=== PATIENT | female | born 1985 | race Caucasian/White ===

== ENCOUNTER 2016-09-15 20:57 | Emergency (ER) | payer OTHER ==
[2016-09-15 22:13] LABS: BILIRUBIN NEGATIVE (NEGATIVE); BLOOD 3+ Ery/uL (NEGATIVE); CLARITY SLIGHTLY HAZY (CLEAR); COLOR YELLOW (YELLOW); GLUCOSE (U) NORMAL (NORMAL); KETONE (U) NEGATIVE (NEGATIVE); LEUKOCYTES 1+ Leu/uL (NEGATIVE); NITRITE NEGATIVE (NEGATIVE); PROTEIN TRACE (LOW) mg/dL (NEGATIVE); SPECIFIC GRAVITY <=1.005 (1.001-1.030); UROBILINOGEN 0.2 mg/dL (0.2-1.0)
[2016-09-15 22:16] LABS: BACTERIA TRACE; URINARY WBC RARE
[2016-09-15 22:58] LABS: BASOPHIL 0.4 % (0-2); EOSINOPHIL 3.4 % (0-5); HCT 37.3 % (37.0-47.0); HGB 12.6 g/dl (12.5-16.0); LYMPHOCYTE 34.5 % (15-48); MCH 30.8 pg (25.0-31.0); MCHC 33.8 g/dL (32.0-36.0); MCV 91.2 fL (78.0-100.0); MONOCYTE 8.6 % (0-12); MPV 10.2 fL (6.0-9.5); NEUTROPHIL 53.1 % (41-80); PLT 253 K/uL (150-400); RBC 4.09 M/uL (4.20-5.40); RDW 13.1 % (11.5-14.0); WBC 10.8 K/uL (4.0-10.5)
[2016-09-15 23:13] LABS: ALBUMIN 4.3 g/dL (3.5-5.0); BILIRUBIN - TOTAL 0.2 mg/dL (0.1-1.0); CREATININE 0.7 mg/dL (0.5-1.0); GLOBULIN (CALCULATION) 2.5 g/dL (2.2-4.2); TOTAL PROTEIN 6.8 g/dL (6.4-8.3)
== END 2016-09-16 01:30 | disposition home or self-care (01) ==
LOC: FER 20:57
PROVIDERS: Emergency Medicine Emergency Medical Services
DX: R10.84 Generalized abdominal pain (principal); R11.2 Nausea with vomiting, unspecified; E86.9 Volume depletion, unspecified; R82.90 Unspecified abnormal findings in urine; F17.210 Nicotine dependence, cigarettes, uncomplicated; Z87.442 Personal history of urinary calculi; Z88.0 Allergy status to penicillin; Z90.89 Acquired absence of other organs; Z97.8 Presence of other specified devices
CPT/HCPCS: 36415; 74000; 80053; 81001; 85025; 87088; J1170; J1885; J2405

== ENCOUNTER 2016-09-30 16:42 | Emergency (ER) | payer OTHER ==
[2016-09-30 17:23] LABS: BASOPHIL 0.4 % (0-2); EOSINOPHIL 1.5 % (0-5); HCT 37.7 % (37.0-47.0); HGB 12.6 g/dl (12.5-16.0); LYMPHOCYTE 21.7 % (15-48); MCHC 33.4 g/dL (32.0-36.0); MCV 89.8 fL (78.0-100.0); MPV 10.1 fL (6.0-9.5); NEUTROPHIL 72.4 % (41-80); PLT 355 K/uL (150-400); RDW 13.4 % (11.5-14.0); WBC 11.9 K/uL (4.0-10.5)
[2016-09-30 17:45] LABS: BILIRUBIN NEGATIVE (NEGATIVE); BLOOD NEGATIVE Ery/uL (NEGATIVE); CLARITY CLEAR (CLEAR); COLOR YELLOW (YELLOW); GLUCOSE (U) NORMAL (NORMAL); KETONE (U) NEGATIVE (NEGATIVE); LEUKOCYTES NEGATIVE Leu/uL (NEGATIVE); NITRITE NEGATIVE (NEGATIVE); PROTEIN NEGATIVE (NEGATIVE); UROBILINOGEN 0.2 mg/dL (0.2-1.0); pH 7.5 (5.0-9.0)
[2016-09-30 17:46] LABS: ALBUMIN 4.3 g/dL (3.5-5.0); BILIRUBIN - TOTAL 0.3 mg/dL (0.1-1.0); CREATININE 0.6 mg/dL (0.5-1.0); GLOBULIN (CALCULATION) 2.8 g/dL (2.2-4.2); POTASSIUM 3.2 mmol/L (3.5-5.1); TOTAL PROTEIN 7.1 g/dL (6.4-8.3)
== END 2016-09-30 20:05 | disposition home or self-care (01) ==
LOC: FER 16:42
PROVIDERS: Nurse Practitioner Family
DX: N20.0 Calculus of kidney (principal); E87.6 Hypokalemia; Z88.0 Allergy status to penicillin; Z87.442 Personal history of urinary calculi
CPT/HCPCS: 36415; 80053; 81003; 82150; 83690; 85025; J1170; J2270; J2405